=== PATIENT | male | born 1940 | race Caucasian/White ===

== ENCOUNTER → 2016-08-12 | Outpatient (CLI) | payer MEDICARE, OTHER ==
--- NOTE | 2016-08-19 16:08 | SS ---
ADMIT: 08/12/2016 RM/LOC: [facility] MR#: [id number] [place], [place] [id number] [address] [facility] [address] [place] [address] Sleep Study SEX: M AGE: 75 : 1940 STUDY DATE: 08/12/2016 CLINICAL HISTORY: This is a 75-year-old male, body mass index of 37.9, 69 inches, 255 pounds, known history of obstructive sleep apnea, in the sleep lab for CPAP titration. TECHNICAL DESCRIPTION: CPAP titration performed on night of 08/12/2016, attended by a trained isotope technologist. TITRATION FINDINGS: TITRATION DESCRIPTION: The patient was titrated from present setting of 7 cm of CPAP to 9 cm of CPAP. A ResMed AirFit N20 large mask was used as interface. SLEEP: Total time in bed is 478 minutes, total sleep time 344 minutes, sleep efficiency 72%. 38.1% of time was spent in stage II sleep, 12.3% of time was spent in stage REM. BREATHING: The patient had excellent resolution of obstructive sleep apnea on CPAP at 9 cm. The patient was seen in REM sleep in lateral position. The patient was also seen in non-REM sleep in supine position at this pressure. OXYGEN SATURATION: Average oxygen saturation 93%. CARDIAC: Average heart rate is 82 beats per minute. MOVEMENTS/POSITION: During the study, the patient slept in supine lateral position with significant periodic leg movements of sleep. Periodic leg movement index was 92.8. At the ending pressure of 9 cm, however, there was improvement in periodic leg movements of sleep. IMPRESSION AND PLAN: Recommend using CPAP of 9 cm with mask as mentioned above. Recommend losing weight, avoiding sedatives or alcohol. Refrain from driving if excessively sleepy. Recommend avoiding sleeping in supine position. Clinical correlation needed. CPAP compliance followup is recommended. Olivier Reyes MD/ belinda JOB #: [id number] CC: Tobias Cameron, Attending Physician Ash Wheatley MD, Family Physician Tobias Cameron
== END | disposition home or self-care (01) ==
LOC: RESC 19:56
DX: G47.33 Obstructive sleep apnea (adult) (pediatric) (principal)